=== PATIENT | female | born 1980 | race Hispanic/Latino ===

== ENCOUNTER 2021-07-20 13:34 | Emergency (ER) | payer SELFPAY ==
[2021-07-20] MEDS ORDERED: LORAZEPAM 1 MG TABLET ONE (14:03)
[2021-07-20] MEDS ORDERED: LORazepam 2 MG/ML VIAL ONE (14:06)
--- NOTE | 2021-07-20 15:18 | ER ---
Nurse's Notes [facility] Name: Marylou Luque Age: 41 yrs Sex: Female : 1980 Arrival Date: 07/20/2021 Time: 13:49 Bed 6 Private MD: Diagnosis: Generalized anxiety disorder Presentation: 07/20 13:59 Chief complaint: EMS states: "A coworker said that she was sitting in a chair at work ss crying and wouldn't talk to anyone." Upon arrival patient states that she feels like there is a monster in her. Denies pain. Coronavirus screen: Client denies travel out of the [place] in the last 14 days. Ebola Screen: Patient denies exposure to infectious person. Patient denies travel to an Ebola-affected area in the 21 days before illness onset. Initial Sepsis Screen: Does the patient meet any 2 criteria? No. Patient's initial sepsis screen is negative. Does the patient have a suspected source of infection? No. Patient's initial sepsis screen is negative. Risk Assessment: Do you want to hurt yourself or someone else? Patient reports no desire to harm self or others. Onset of symptoms was July 20, 2021. 13:59 Method Of Arrival: EMS: [facility] 13:59 Acuity: BRYAN 3 ss Historical: - Allergies: 15:38 No Known Allergies; gonzales - Home Meds: 15:38 None [Active]; gonzales - PMHx: 15:38 Anxiety; gonzales - PSHx: 15:38 None; gonzales - Immunization history:: Adult Immunizations up to date. - Social history:: Patient/guardian denies using alcohol, street drugs, The patient lives with family, Smoking status: Patient denies any tobacco usage or history of. Screenin:38 Abuse screen: Denies threats or abuse. Denies injuries from another. Nutritional gonzales screening: No deficits noted. Tuberculosis screening: No symptoms or risk factors identified. Fall Risk None identified. Assessment: 15:38 General: Appears distressed, Behavior is agitated, anxious, uncooperative, gonzales unresponsive. Pain: Denies pain. Neuro: Level of Consciousness is confused. Vital Signs: 15:40 BP 125 / 71; Pulse 88; Resp 22; Temp 98.5(O); Pulse Ox 100% ; Weight 70.31 kg; Height 5 gonzales ft. 1 in. (154.94 cm); 15:40 Body Mass Index 29.29 (70.31 kg, 154.94 cm) gonzales ED Course: 13:49 Patient arrived in ED. ss 13:51 Kody Amaro MD is Attending Physician. [email or web address] 13:54 aNsima Ortiz, RN is Primary Nurse. gonzales 13:59 Arm band placed on right wrist. ss 14:02 Triage completed. ss 14:06 Placed in gown. Bed in low position. Call light in reach. tp1 14:06 EKG done, by ED staff. tp1 15:38 No provider procedures requiring assistance completed. Maintain EMS IV. Site clean \\T\\ gonzales dry. Gauge \\T\\ site: 20g LAC. 15:40 IV discontinued, intact, Pressure dressing applied. gonzales Administered Medications: 14:04 Not Given (Physician Discretion): Ativan (LORazepam) 2 mg PO once gonzales 14:05 Drug: Ativan (LORazepam) 2 mg Route: IVP; Site: left antecubital; gonzales 14:05 Follow up: Response: No adverse reaction gonzales Medication: 15:38 VIS not applicable for this client. gonzales Outcome: 15:17 Discharge ordered by . [facility] 15:38 Discharged to home ambulatory. gonzales 15:38 Condition: good 15:38 Discharge instructions given to patient, family, Prescriptions given X 1. 15:41 Patient left the ED. gonzales Signatures: Dedra Padron, JERRY EDWARDS Kody Amaro MD MD wa2 Lisa New tp1 Nasima Ortiz RN RN gonzaels
--- NOTE | 2021-07-20 15:18 | EDPHYS ---
Physician Documentation [facility] Name: Marylou Luque Age: 41 yrs Sex: Female : 1980 Arrival Date: 07/20/2021 Time: 13:49 Bed 6 Private MD: ED Physician Kody Amaro HPI: 07/20 15:16 This 41 yrs old Female presents to ER via EMS with complaints of emotional ma2 distress. 15:16 32-year-old female was at work when she was extremely anxious and upset, patient states ma2 that she felt shortness of breath and dizzy at that time, all symptoms resolved, she attributed the symptoms to her emotional distress. Patient is back to baseline at this time able to talk with no issues. Historical: - Allergies: 15:38 No Known Allergies; gonzales - Home Meds: 15:38 None [Active]; gonzales - PMHx: 15:38 Anxiety; gonzales - PSHx: 15:38 None; gonzales - Immunization history:: Adult Immunizations up to date. - Social history:: Patient/guardian denies using alcohol, street drugs, The patient lives with family, Smoking status: Patient denies any tobacco usage or history of. ROS: 15:16 Constitutional: Negative for fever, chills, and weight loss. ma2 15:16 All other systems are negative. Exam: 15:16 Constitutional: This is a well developed, well nourished patient who is awake, alert, ma2 and in no acute distress. Head/Face: Normocephalic, atraumatic. Eyes: Pupils equal round and reactive to light, extra-ocular motions intact. Lids and lashes normal. Conjunctiva and sclera are non-icteric and not injected. Cornea within normal limits. Periorbital areas with no swelling, redness, or edema. ENT: Nares patent. No nasal discharge, no septal abnormalities noted. Tympanic membranes are normal and external auditory canals are clear. Oropharynx with no redness, swelling, or masses, exudates, or evidence of obstruction, uvula midline. Mucous membranes moist. Neck: Trachea midline, no thyromegaly or masses palpated, and no cervical lymphadenopathy. Supple, full range of motion without nuchal rigidity, or vertebral point tenderness. No Meningismus. Chest/axilla: Normal chest wall appearance and motion. Nontender with no deformity. No lesions are appreciated. Cardiovascular: Regular rate and rhythm with a normal S1 and S2. No gallops, murmurs, or rubs. Normal PMI, no JVD. No pulse deficits. Respiratory: Lungs have equal breath sounds bilaterally, clear to auscultation and percussion. No rales, rhonchi or wheezes noted. No increased work of breathing, no retractions or nasal flaring. Abdomen/GI: Soft, non-tender, with normal bowel sounds. No distension or tympany. No guarding or rebound. No evidence of tenderness throughout. Back: No spinal tenderness. No costovertebral tenderness. Full range of motion. Skin: Warm, dry with normal turgor. Normal color with no rashes, no lesions, and no evidence of cellulitis. MS/ Extremity: Pulses equal, no cyanosis. Neurovascular intact. Full, normal range of motion. Neuro: Awake and alert, GCS 15, oriented to person, place, time, and situation. Cranial nerves II-XII grossly intact. Motor strength 5/5 in all extremities. Sensory grossly intact. Cerebellar exam normal. Normal gait. Psych: Awake, alert, with orientation to person, place and time. Behavior, mood, and affect are within normal limits. Vital Signs: 15:40 BP 125 / 71; Pulse 88; Resp 22; Temp 98.5(O); Pulse Ox 100% ; Weight 70.31 kg; Height 5 gonzales ft. 1 in. (154.94 cm); 15:40 Body Mass Index 29.29 (70.31 kg, 154.94 cm) gonzales MDM: 15:16 Differential diagnosis: acute psychotic break, depression, psychosis secondary to ma2 non-compliance. Data reviewed: vital signs, nurses notes. Counseling: I had a detailed discussion with the patient and/or guardian regarding: the historical points, exam findings, and any diagnostic results supporting the discharge/admit diagnosis, the presence of at least one elevated blood pressure reading (>120/80) during this emergency department visit, the need for outpatient follow up. Response to treatment: the patient's symptoms have resolved after treatment. 15:17 Patient medically screened. ma2 Administered Medications: 14:04 Not Given (Physician Discretion): Ativan (LORazepam) 2 mg PO once gonzales 14:05 Drug: Ativan (LORazepam) 2 mg Route: IVP; Site: left antecubital; gonzales 14:05 Follow up: Response: No adverse reaction gonzales Disposition Summary: 07/20/21 15:17 Discharge Ordered Location: Home ma2 Condition: Stable ma2 Diagnosis - Generalized anxiety disorder ma2 Followup: ma2 - With: Private Physician - When: Tomorrow - Reason: If symptoms return, Continuance of care Discharge Instructions: - Discharge Summary Sheet ma2 - Generalized Anxiety Disorder, Adult ma2 Forms: - Medication Reconciliation Form ma2 - Thank You Letter ma2 - Antibiotic Education ma2 - Prescription Opioid Use nh2 Prescriptions: - buspirone 5 mg Oral tablet - take 1 tablet by ORAL route 3 times per day; 30 tablet; Refills: 0, Product nh2 Selection Permitted Signatures: Kody Amaro MD MD [facility] Sabrina-Nasima Porter RN RN
[2021-07-20 15:53] VITALS: BP 125/71; TEMP 98.5; O2SAT 100
--- NOTE | 2021-07-22 11:28 | EKG ---
Test Date: 2021-07-20 Test Time: 13:58:55 [employer]: TP MEASUREMENT RESULTS: Intervals: Rate: 110 SD: 130 QRSD: 88 QT: 358 QTc: 484 [place]: P: 61 SD: 130 QRS: 60 T: 41 INTERPRETIVE STATEMENTS: Sinus tachycardia Nonspecific ST abnormality Abnormal ECG No previous ECG available for comparison Electronically Signed On 07-22-21 11:23:50 CDT by Thuan Sue
== END 2021-07-20 15:41 | disposition home or self-care (01) ==
LOC: ER 13:34
DX: F41.1 Generalized anxiety disorder (principal)
CPT/HCPCS: 93005; 96374; 99284